=== PATIENT | female | born 1965 | race African-American/Black ===

== ENCOUNTER → 2022-07-15 | Outpatient (CLI) | payer OTHER ==
[~2022-07-15] MED LIST: AMIT75 PO; CARB200T6 PO; GABA-1181 PO; HYDR4 PO; LACT10SO46 PO; PRED5TAB PO
== END | disposition home or self-care (01) ==
LOC: RADMN 14:23
PROVIDERS: ATTEND Internal Medicine Cardiovascular Disease
DX: I67.82 Cerebral ischemia (principal); J32.0 Chronic maxillary sinusitis; M62.81 Muscle weakness (generalized); Z86.73 Personal history of transient ischemic attack (TIA), and cerebral infarction without residual deficits
CPT/HCPCS: 70551